=== PATIENT | male | born 1960 | race Caucasian/White ===

== ENCOUNTER 2022-05-15 15:44 | Emergency (ER) | payer BC ==
[2022-05-15] MEDS ORDERED: Sodium Chloride 0.9% 10 ML Syringe FLUSH PRN (15:49)
[2022-05-15] MEDS ORDERED: Tenecteplase 50 MG Kit IV ONE (16:49)
[2022-05-15] MEDS ORDERED: Tenecteplase 50 MG Kit ONE (16:50)
[2022-05-15] MEDS ORDERED: Heparin Sodium 5,000 Units/ML Vial IVPUSH ONE (16:50)
[2022-05-15] MEDS ORDERED: Heparin Sodium/D5W 25,000 UNITS/500 ML BAG IV SCH (17:00)
== END 2022-05-15 17:40 ==
LOC: JD.ED 15:44
DX: I21.29 ST elevation (STEMI) myocardial infarction involving other sites (principal)
CPT/HCPCS: 36415; 71045; 80053; 84484; 85025; 93005; 96365; 96375; 96376; 99285; J1644; J3101; J3490; 93010